=== PATIENT | female | born 1995 | race American Indian/Alaskan Native ===

== ENCOUNTER 2017-05-12 09:47 | Emergency (ER) | payer MEDICAID ==
[2017-05-12 10:26] VITALS: BP 137/70
--- NOTE | 2017-05-12 12:05 | XRay Report ---
ROUTINE CHEST, TWO VIEWS: HISTORY: Cough. The trachea, heart, mediastinal contour, lung palacios and bony thorax are unremarkable. IMPRESSION: Unremarkable chest x-ray.
[2017-05-12] MEDS ORDERED: TESSALON PERLES PO ONE (12:27)
[2017-05-12] MEDS ORDERED: LIDOCAINE VISCOUS 2% PO ONE (12:27)
--- NOTE | 2017-05-12 12:32 | Emergency Department Report ---
- General Chief Complaint: Upper Respiratory Infection Stated Complaint: FLU LIKE SYMPTOMS Time Seen by Provider: 05/12/17 11:11 Source: patient Mode of arrival: Ambulatory Limitations: No Limitations - History of Present Illness Initial Comments: This is a 21-year-old female nontoxic, well nourished in appearance, no acute signs of distress presents to the ED with c/o of sore throat, nasal congestion, productive cough, and rhinorrhea x1 week. Patient describes productive cough as yellow/green mucus production. Patient denies recent travels, long car rides, or recent hospital stays. Patient denies any calf pain, calf tenderness, fever, chills, nausea, vomiting, chest pain, shortness of breath, headache, stiff neck , hemoptysis. Patient denies any allergies. Past medical history includes asthma. MD Complaint: cough, sore throat, rhinorrhea, nasal congestion -: week(s) (1) Severity: mild Severity scale (0 -10): 0 Consistency: constant Improves With: nothing Worsens With: nothing Associated Symptoms: rhinorrhea, nasal congestion, sore throat, cough. denies: fever, chills, myalgias, diaphoresis, headache, stiff neck, chest pain, shortness of breath, abdominal pain, nausea, vomiting, diarrhea, dysuria, rash, confusion, right sweats, weight loss, epistaxis, hoarseness, ear pain Treatments Prior to Arrival: none - Related Data Previous Rx's Medication Instructions Recorded Last Taken Type Amoxicillin/Potassium Clav 1 each PO BID #20 tablet 05/12/17 Unknown Rx [Augmentin 875-125 Tablet] Benzonatate [Tessalon Perle] 100 mg PO Q8H PRN #15 capsule 05/12/17 Unknown Rx Nystas/Diphen/Xyl Visc/Mylanta 480 ml MM Q8H PRN 15 Days udc 05/12/17 Unknown Rx [Magic Mouthwash] Allergies Allergy/AdvReac Type Severity Reaction Status Date / Time No Known Allergies Allergy Verified 05/12/17 10:27 ED Review of Systems ROS: Stated complaint: FLU LIKE SYMPTOMS Other details as noted in HPI Constitutional: denies: chills, fever Eyes: denies: eye pain, eye discharge, vision change ENT: denies: ear pain, throat pain Respiratory: cough. denies: shortness of breath, wheezing Cardiovascular: denies: chest pain, palpitations Endocrine: no symptoms reported Gastrointestinal: denies: abdominal pain, nausea, diarrhea Genitourinary: denies: urgency, dysuria, discharge Musculoskeletal: denies: back pain, joint swelling, arthralgia Skin: denies: rash, lesions Neurological: denies: headache, weakness, paresthesias Psychiatric: denies: anxiety, depression Hematological/Lymphatic: denies: easy bleeding, easy bruising ED Past Medical Hx - Past Medical History Previous Medical History?: Yes Hx Asthma: Yes - Surgical History Past Surgical History?: Yes Additional Surgical History: gallstones - Social History Smoking Status: Never Smoker Substance Use Type: None - Medications Home Medications: Home Medications Medication Instructions Recorded Confirmed Last Taken Type Amoxicillin/Potassium Clav 1 each PO BID #20 tablet 05/12/17 Unknown Rx [Augmentin 875-125 Tablet] Benzonatate [Tessalon Perle] 100 mg PO Q8H PRN #15 capsule 05/12/17 Unknown Rx Nystas/Diphen/Xyl Visc/Mylanta 480 ml MM Q8H PRN 15 Days udc 05/12/17 Unknown Rx [Magic Mouthwash] ED Physical Exam - General Limitations: No Limitations General appearance: alert, in no apparent distress - Head Head exam: Present: atraumatic, normocephalic, normal inspection - Eye Eye exam: Present: normal appearance, PERRL, EOMI. Absent: scleral icterus, conjunctival injection, nystagmus, periorbital swelling, periorbital tenderness Pupils: Present: normal accommodation - ENT ENT exam: Present: mucous membranes moist, TM's normal bilaterally, normal external ear exam - Expanded ENT Exam Expanded Ear exam: Present: normal external inspection Mouth exam: Present: normal external inspection, tongue normal. Absent: drooling, trismus, muffled voice, tongue elevation, laceration Teeth exam: Present: normal inspection Throat exam: Positive: tonsillar erythema, tonsillomegaly (2+), other (Uvula midline. No abscess or swelling ntoed. ). Negative: tonsillar exudate, R peritonsillar mass, L peritonsillar mass - Neck Neck exam: Present: normal inspection, full ROM. Absent: tenderness, meningismus, lymphadenopathy, thyromegaly - Respiratory Respiratory exam: Present: normal lung sounds bilaterally. Absent: respiratory distress, wheezes, rales, rhonchi, stridor, chest wall tenderness, accessory muscle use, decreased breath sounds, prolonged expiratory - Cardiovascular Cardiovascular Exam: Present: regular rate, normal rhythm, normal heart sounds. Absent: bradycardia, tachycardia, irregular rhythm, systolic murmur, diastolic murmur, rubs, gallop - GI/Abdominal GI/Abdominal exam: Present: soft, normal bowel sounds. Absent: distended, tenderness, guarding, rebound, rigid, diminished bowel sounds - Rectal Rectal exam: Present: deferred - Extremities Exam Extremities exam: Present: normal inspection, full ROM, normal capillary refill. Absent: tenderness, pedal edema, joint swelling, calf tenderness - Back Exam Back exam: Present: normal inspection, full ROM. Absent: tenderness, CVA tenderness (R), CVA tenderness (L), muscle spasm, paraspinal tenderness, vertebral tenderness, rash noted - Neurological Exam Neurological exam: Present: alert, oriented X3, CN II-XII intact, normal gait, reflexes normal - Psychiatric Psychiatric exam: Present: normal affect, normal mood - Skin Skin exam: Present: warm, dry, intact, normal color. Absent: rash ED Course Vital Signs 05/12/17 10:24 Temperature 99.3 F Pulse Rate 77 Respiratory 16 Rate Blood Pressure 137/70 O2 Sat by Pulse 100 Oximetry - Reevaluation(s) Reevaluation #1: 05/12/17 12:34 Patient is speaking in full sentences with no signs of distress noted. ED Medical Decision Making - Medical Decision Making This is a 21-year-old female that presents with tonsillitis and upper resp infection. Patient is stable and was examined by me. PAtient received Lidocaine visous and Tessalon Perles the patient stated his symptoms are improving and are subsiding. Chest x-ray obtained and dictated by radiologist but normal exam. Negative influenza swab. Patient is discharged with Augmentin 10 days. Patient was instructed to Follow-up with a primary care doctor in 3-5 days or if symptoms worsen and continue return to emergency room as soon as possible. At time time of discharge, the patient does not seem toxic or ill in appearance. No acute signs of distress noted. Patient agrees to discharge treatment plan of care. No further questions noted by the patient. Critical care attestation.: If time is entered above; I have spent that time in minutes in the direct care of this critically ill patient, excluding procedure time. ED Disposition Clinical Impression: Tonsillitis Upper respiratory infection Qualifiers: URI type: unspecified URI Qualified Code(s): J06.9 - Acute upper respiratory infection, unspecified Disposition: - TO HOME OR SELFCARE Is pt being admited?: No Does the pt Need Aspirin: No Condition: Stable Instructions: Upper Respiratory Infection (ED), Tonsillitis (ED), Amoxicillin/ Clavulanate Potassium (By mouth), Benzonatate (By mouth) Additional Instructions: Follow-up with a primary care doctor in 3-5 days or if symptoms worsen and continue return to emergency room as soon as possible. Prescriptions: Amoxicillin/Potassium Clav [Augmentin 875-125 Tablet] 1 each PO BID #20 tablet Benzonatate [Tessalon Perle] 100 mg PO Q8H PRN #15 capsule PRN Reason: Cough Nystas/Diphen/Xyl Visc/Mylanta [Magic Mouthwash] 480 ml MM Q8H PRN 15 Days udc PRN Reason: Sore Throat Referrals: PRIMARY CAREMD [Primary Care Provider] - 3-5 Days SAUL CORNELIUS MD [Staff Physician] - 3-5 Days [facility] [Outside] - 3-5 Days [facility] [Outside] - 3-5 Days Forms: Work/School Release Form(ED)
== END 2017-05-12 12:46 | disposition home or self-care (01) ==
LOC: ED 09:47
DX: J06.9 Acute upper respiratory infection, unspecified (principal); J03.90 Acute tonsillitis, unspecified; J45.909 Unspecified asthma, uncomplicated
CPT/HCPCS: 71020; 87400; 99284

== ENCOUNTER 2017-12-15 08:49 | Emergency (ER) | payer MEDICAID, OTHER ==
[2017-12-15 09:08] VITALS: BP 128/73
[2017-12-15] MEDS ORDERED: ZOFRAN ODT PO ONE (10:21)
--- NOTE | 2017-12-15 10:42 | Emergency Department Report ---
Blank Doc - Documentation Documentation: This is a 21-year-old Female who is presenting with 2 days of nausea vomiting. Patient states she can't not keep any food down. Patient can drink water with no issue. Patient does not have gallbladder is not sure why these symptoms have occurred. Patient has not had any sick contacts. Patient at the end of the medical screening exam did state that she is late for her. It may be . Patient is given Zofran will undergo a by mouth challenge and reassessment the patient will have a test and urinalysis performed. Brief physical exam patient had no abdominal pain.
[2017-12-15 10:53] LABS: Bilirubin,Urine NEG (Negative); Blood,Urine NEG (Negative); Color,Urine Yellow (Yellow); Mucus,Urine 2+ /HPF; Protein,Urine <15 mg/dL mg/dL (Negative); Urobilinogen,Urine < 2.0 mg/dL (<2.0); WBC,Urine < 1.0 /HPF (0.0-6.0)
[2017-12-15 10:54] LABS: HCG Qualitative,Urine Positive (Negative)
--- NOTE | 2017-12-15 11:09 | Emergency Department Report ---
ED N/V/D HPI - General Chief complaint: Nausea/Vomiting/Diarrhea Stated complaint: NAUSEA/VOMITTING Time Seen by Provider: 12/15/17 10:17 Source: patient Mode of arrival: Ambulatory Limitations: No Limitations - History of Present Illness Initial comments: This is a 21-year-old Female who is presenting with 2 days of nausea vomiting. Patient states she can't not keep any food down. Patient can drink water with no issue. Patient does not have gallbladder is not sure why these symptoms have occurred. Patient has not had any sick contacts. Patient at the end of the medical screening exam did state that she is late for her. It may be . MD complaint: nausea, vomiting Associated Abdominal Pain: No Quality: cramping Consistency: constant Associated Symptoms: denies: myalgias, chest pain, cough, diaphoresis, fever/ chills, headaches, loss of appetite, malaise, rash, dysuria, shortness of breath , syncope - Related Data Previous Rx's Medication Instructions Recorded Last Taken Type Amoxicillin/Potassium Clav 1 each PO BID #20 tablet 05/12/17 Unknown Rx [Augmentin 875-125 Tablet] Benzonatate [Tessalon Perle] 100 mg PO Q8H PRN #15 capsule 05/12/17 Unknown Rx Nystas/Diphen/Xyl Visc/Mylanta 480 ml MM Q8H PRN 15 Days udc 05/12/17 Unknown Rx [Magic Mouthwash] Ondansetron [Zofran Odt] 4 mg PO Q8HR PRN #10 tab.rapdis 12/15/17 Unknown Rx Prenat 115/Iron Fum/Folic/Dss 1 each PO DAILY #30 tablet 12/15/17 Unknown Rx [Pnv-Ferrous Zxjtvoos-Xfin-HK] Allergies Allergy/AdvReac Type Severity Reaction Status Date / Time No Known Allergies Allergy Verified 05/12/17 10:27 ED Review of Systems ROS: Stated complaint: NAUSEA/VOMITTING Other details as noted in HPI Comment: All other systems reviewed and negative ED Past Medical Hx - Past Medical History Hx Asthma: Yes - Surgical History Additional Surgical History: gallstones - Social History Smoking Status: Current Every Day Smoker Substance Use Type: None - Medications Home Medications: Home Medications Medication Instructions Recorded Confirmed Last Taken Type Amoxicillin/Potassium Clav 1 each PO BID #20 tablet 05/12/17 Unknown Rx [Augmentin 875-125 Tablet] Benzonatate [Tessalon Perle] 100 mg PO Q8H PRN #15 capsule 05/12/17 Unknown Rx Nystas/Diphen/Xyl Visc/Mylanta 480 ml MM Q8H PRN 15 Days udc 05/12/17 Unknown Rx [Magic Mouthwash] Ondansetron [Zofran Odt] 4 mg PO Q8HR PRN #10 tab.rapdis 12/15/17 Unknown Rx Prenat 115/Iron Fum/Folic/Dss 1 each PO DAILY #30 tablet 12/15/17 Unknown Rx [Pnv-Ferrous Qhnmntxo-Ycsh-SG] ED Physical Exam - General Limitations: No Limitations General appearance: alert, in no apparent distress - Head Head exam: Present: atraumatic, normocephalic - Eye Eye exam: Present: normal appearance - ENT ENT exam: Present: mucous membranes moist - Neck Neck exam: Present: normal inspection - Respiratory Respiratory exam: Present: normal lung sounds bilaterally. Absent: respiratory distress - Cardiovascular Cardiovascular Exam: Present: regular rate, normal rhythm. Absent: systolic murmur, diastolic murmur, rubs, gallop - GI/Abdominal GI/Abdominal exam: Present: soft, normal bowel sounds - Extremities Exam Extremities exam: Present: normal inspection - Back Exam Back exam: Present: normal inspection - Neurological Exam Neurological exam: Present: alert, oriented X3 - Psychiatric Psychiatric exam: Present: normal affect, normal mood - Skin Skin exam: Present: warm, dry, intact, normal color. Absent: rash ED Course Vital Signs 12/15/17 12/15/17 09:05 09:55 Temperature 98.2 F Pulse Rate 87 Respiratory 18 18 Rate Blood Pressure 128/73 O2 Sat by Pulse 98 99 Oximetry ED Medical Decision Making - Lab Data Lab Results 12/15/17 Range/Units 10:28 Urine Color Yellow (Yellow) Urine Turbidity Clear (Clear) Urine pH 6.0 (5.0-7.0) Ur Specific [place] 1.026 (1.003-1.030) Urine Protein <15 mg/dl (Negative) mg/dL Urine Glucose (UA) Neg (Negative) mg/dL Urine Ketones Tr (Negative) mg/dL Urine Blood Neg (Negative) Urine Nitrite Neg (Negative) Urine Bilirubin Neg (Negative) Urine Urobilinogen < 2.0 (<2.0) mg/dL Ur Leukocyte Esterase Neg (Negative) Urine WBC (Auto) < 1.0 (0.0-6.0) /HPF Urine RBC (Auto) 1.0 (0.0-6.0) /HPF U Epithel Cells (Auto) 8.0 (0-13.0) /HPF Urine Mucus 2+ /HPF Urine HCG, Qual Positive A (Negative) - Medical Decision Making Patient will be referred to gynecology for further management of this . Patient has no abdominal pain or bleeding at this time does not warrant ultrasound. Patient restarted on Ms. for nausea and vitamins. Critical care attestation.: If time is entered above; I have spent that time in minutes in the direct care of this critically ill patient, excluding procedure time. ED Disposition Clinical Impression: Qualifiers: Weeks of gestation: unspecified Qualified Code(s): Z34.90 - Encounter for supervision of normal , unspecified, unspecified trimester Disposition: DC-01 TO HOME OR SELFCARE Is pt being admited?: No Does the pt Need Aspirin: No Condition: Stable Instructions: (ED), Acute Nausea and Vomiting (ED) Prescriptions: Ondansetron [Zofran Odt] 4 mg PO Q8HR PRN #10 tab.rapdis PRN Reason: Nausea Prenat 115/Iron Fum/Folic/Dss [Pnv-Ferrous Abeuueio-Mjbo-SA] 1 each PO DAILY # 30 tablet Referrals: TATI MESSINA MD [Staff Physician] - 3-5 Days
== END 2017-12-15 11:16 | disposition home or self-care (01) ==
LOC: ED 08:49
DX: Z34.90 Encounter for supervision of normal pregnancy, unspecified, unspecified trimester (principal); J45.909 Unspecified asthma, uncomplicated; F17.200 Nicotine dependence, unspecified, uncomplicated; Z3A.00 Weeks of gestation of pregnancy not specified
CPT/HCPCS: 81001; 81025; 99283; Q0162

== ENCOUNTER 2017-12-22 10:21 | Emergency (ER) | payer SELFPAY ==
[2017-12-22] MEDS ORDERED: ZOFRAN IV ONE (11:46)
--- NOTE | 2017-12-22 11:50 | Emergency Department Report ---
Blank Doc - Documentation Documentation: 22 year female with past surgical history of cholecystectomy presents to hospital stating she is approximately 7 weeks with nausea vomiting with by mouth intolerance for past 24 hours. Patient was seen here December 15 with similar symptoms and diagnosed with at that time. The prescribe Zofran is not controlling her nausea vomiting symptoms. Patient feels lightheaded and has a headache and feels like she is dehydrated. She complains of mild epigastric pain. She denies vaginal discharge or bleeding. She has her first [employer] appointment scheduled in 3 days with a [facility] group on [facility] in [place] but she cannot recall the name of the group. Previous visit reviewed. Exam on epigastric pain Labs, UA, ultrasound Meds: D5 NS and Zofran Midlevel to follow
[2017-12-22 12:00] LABS: Hematocrit 37.9 % (30.3-42.9); Hemoglobin 13.2 gm/dl (10.1-14.3); Mean Corpuscular HGB Conc 35 % (30-34); Mean Corpuscular Hemoglobin 29 pg (28-32); Mean Corpuscular Volume 84 fl (79-97); Platelet Count 227 K/mm3 (140-440); Red Blood Count 4.53 M/mm3 (3.65-5.03); Red Cell Distribution Width 12.6 % (13.2-15.2)
[2017-12-22] MEDS ORDERED: D5NS 1,000 ML IV SCH (12:00)
[2017-12-22 12:23] LABS: Alanine Aminotransferase 28 units/L (7-56); Albumin 4.5 g/dL (3.9-5); BUN/Creatinine Ratio 9; Blood Urea Nitrogen 6 mg/dL (7-17); Calcium 9.6 mg/dL (8.4-10.2); Hemolysis Index 10
--- NOTE | 2017-12-22 12:35 | Emergency Department Report ---
Vomiting/Diarrhea - HPI Chief Complaint: Nausea/Vomiting/Diarrhea Stated Complaint: CONSTANT VOMITING/ DIZZINESS/ Time Seen by Provider: 12/22/17 11:42 Duration: 2 Days Severity: moderate Nausea/Vomiting Severity: Moderate Diarrhea Severity: None Pain Severity: None Symptoms: Yes Able to Tolerate Fluids, No Watery Diarrhea, No Bloody diarrhea, No Fever, No Recent Unusual Foods, No Recent Untreated Water, No Recent use of Antibiotics, No Family w/ Similar Symptoms, No Contacts w/ Similar Symptoms, No Rash, No Hematuria, No Recent URI Symptoms Other History: This is a 22 year female who presents with nausea and vomiting and headache for 24 hours. Patient is approximately 7 weeks gestation. She has her first appointment with [facility] TECHNICIAN in [place] near her house next week. She does not remember the name of the OPERATING ROOM TECHNICIAN. Past surgical history of cholecystectomy. Patient was seen here December 15 with similar symptoms and diagnosed with at that time. She was prescribed Zofran which is not controlling nausea and vomiting. Patient feels lightheaded and has a headache and feels like she is dehydrated. She complains of mild epigastric pain. She denies vaginal discharge or bleeding, chest pain, abdominal and low back pain, and fever. ED Review of Systems ROS: Stated complaint: CONSTANT VOMITING/ DIZZINESS/ Other details as noted in HPI Constitutional: denies: chills, fever Respiratory: denies: cough, shortness of breath, wheezing Cardiovascular: denies: chest pain, palpitations Gastrointestinal: nausea, vomiting. denies: abdominal pain, diarrhea, constipation, hematemesis, melena, hematochezia Genitourinary: denies: urgency, dysuria, discharge Neurological: headache. denies: weakness, numbness, paresthesias Psychiatric: denies: anxiety, depression ED Past Medical Hx - Past Medical History Hx Asthma: Yes - Surgical History Past Surgical History?: Yes Additional Surgical History: gallstones - Social History Smoking Status: Never Smoker Substance Use Type: Marijuana - Medications Home Medications: Home Medications Medication Instructions Recorded Confirmed Last Taken Type Amoxicillin/Potassium Clav 1 each PO BID #20 tablet 05/12/17 Unknown Rx [Augmentin 875-125 Tablet] Benzonatate [Tessalon Perle] 100 mg PO Q8H PRN #15 capsule 05/12/17 Unknown Rx Nystas/Diphen/Xyl Visc/Mylanta 480 ml MM Q8H PRN 15 Days udc 05/12/17 Unknown Rx [Magic Mouthwash] Ondansetron [Zofran Odt] 4 mg PO Q8HR PRN #10 tab.rapdis 12/15/17 Unknown Rx Prenat 115/Iron Fum/Folic/Dss 1 each PO DAILY #30 tablet 12/15/17 Unknown Rx [Pnv-Ferrous Uueluned-Rziv-SY] Ondansetron [Zofran Odt] 4 mg PO TID PRN #15 tab.rapdis 12/22/17 Unknown Rx Vomiting Diarrhea Exam - Exam General: Vital signs noted. No distress. Alert and acting appropriately. HEENT: Yes Moist Mucous Membranes, No Pharyngeal Erythema, No Pharyngeal Exudates, No Rhinorrhea, No Conjuctival Injection, No Frontal Tenderness, No Maxillary Tenderness Neck: No Adenopathy, No Rigidity Lungs: Yes Clear Lung Sounds, Yes Good Air Exchange, No Wheezes, No Stridor, No Cough, No Nasal Flaring, No Retractions, No Use of Accessory Muscles Heart exam: Regular: Yes, Murmur: No, Tachycardia: No Abdomen: Tenderness: No, Peritoneal Signs: No, Distention: No, Hyperactive Bowel sounds: No Skin exam: Rash: No, Edema: No, Normal turgor: Yes Neurologic: Alert and oriented, no deficits. Musculoskeletal: Unremarkable. ED Course Vital Signs 12/22/17 10:33 Temperature 98.8 F Pulse Rate 81 Respiratory 16 Rate Blood Pressure 122/80 O2 Sat by Pulse 100 Oximetry ED Medical Decision Making - Lab Data Result diagrams: 12/22/17 11:50 12/22/17 11:49 - Radiology Data Radiology results: report reviewed Pelvic and transvaginal sonography: History: Vomiting, . Findings: Uterus measures 10 x 5.6 x 6.5 cm. Single intrauterine gestational sac is noted. The sac diameter is 15 mm corresponding to 6 weeks and 2 days of gestation. Yolk sac is identified however no pole is seen. Right ovary 2 x 1.4 x 1.5 cm. No mass. Left ovary 2.5 x 1.8 x 2.2 cm. No mass. Impression: Single intrauterine gestational sac with yolk sac is identified. - Medical Decision Making This is a 22 y.o. female presents with nausea and vomiting and headache for 24 hours. Patient is approximately 7 weeks gestation. Patient was examined by me and Dr. Elaine. Obtained BMP, CMP, hCG Quant, and OB [place]. [place] [address], all the labs unremarkable. Single intrauterine gestational sac with yolk sac is identified. Patient informed of results and given ultrasound report to take to [facility]ATING RO[facility] TECHNICIAN. Continue Zofran for nausea and follow-up with OPERATING ROOM TECHNICIAN next week. Plan discussed with patient to discharge home and treat outpatient. Patient discharged home in stable condition. Follow up with PCP and OPERATING ROOM TECHNICIAN in 2-3 days. Critical care attestation.: If time is entered above; I have spent that time in minutes in the direct care of this critically ill patient, excluding procedure time. ED Disposition Clinical Impression: Nausea and vomiting during Qualifiers: Weeks of gestation: less than 8 weeks Qualified Code(s): Z3A.01 - Less than 8 weeks gestation of Disposition: TO HOME OR SELFCARE Is pt being admited?: No Does the pt Need Aspirin: No Condition: Stable Instructions: Morning Sickness (ED), Acute Nausea and Vomiting (ED) Additional Instructions: Take Zofran 3 times a day as needed for nausea. Follow-up with OPERATING ROOM TECHNICIAN in 3-5 days. With time to ER is nausea and vomiting increase, abdominal pain, vaginal bleeding, and fever. Prescriptions: Ondansetron [Zofran Odt] 4 mg PO TID PRN #15 tab.rapdis PRN Reason: Nausea And Vomiting Referrals: [facility] [Provider Group] - 3-5 Days [facility] [Provider Group] - 3-5 Days Forms: Work/School Release Form(ED) Time of Disposition: 14:19 Print Language: TURKMEN
--- NOTE | 2017-12-22 13:43 | Ultrasound Report ---
Pelvic and transvaginal sonography: History: Vomiting, . Findings: Uterus measures 10 x 5.6 x 6.5 cm. Single intrauterine gestational sac is noted. The sac diameter is 15 mm corresponding to 6 weeks and 2 days of gestation. Yolk sac is identified however no pole is seen. Right ovary 2 x 1.4 x 1.5 cm. No mass. Left ovary 2.5 x 1.8 x 2.2 cm. No mass. Impression: Single intrauterine gestational sac with yolk sac is identified.
[2017-12-22 14:30] VITALS: BP 128/80
== END 2017-12-22 14:30 | disposition home or self-care (01) ==
LOC: ED 10:21
DX: O21.9 Vomiting of pregnancy, unspecified (principal); O26.891 Other specified pregnancy related conditions, first trimester; R51 Headache; R42 Dizziness and giddiness; R10.13 Epigastric pain; J45.909 Unspecified asthma, uncomplicated; F12.10 Cannabis abuse, uncomplicated; Z3A.01 Less than 8 weeks gestation of pregnancy; Z90.49 Acquired absence of other specified parts of digestive tract
CPT/HCPCS: 36415; 76801; 76817; 80053; 82962; 84702; 85027; 96361; 96374; 99284; J2405; J7042

== ENCOUNTER 2017-12-25 00:48 | Emergency (ER) | payer SELFPAY ==
[2017-12-25 01:52] VITALS: BP 121/71
[2017-12-25 02:53] LABS: Basophils % (Auto) 0.4 % (0.0-1.8); Eosinophils # (Auto) 0.1 K/mm3 (0.0-0.4); Eosinophils % (Auto) 1.1 % (0.0-4.3); Hematocrit 39.9 % (30.3-42.9); Hemoglobin 13.4 gm/dl (10.1-14.3); Lymphocytes # (Auto) 1.9 K/mm3 (1.2-5.4); Lymphocytes % (Auto) 16.6 % (13.4-35.0); Mean Corpuscular HGB Conc 34 % (30-34); Mean Corpuscular Hemoglobin 28 pg (28-32); Mean Corpuscular Volume 84 fl (79-97); Monocytes # (Auto) 0.7 K/mm3 (0.0-0.8); Monocytes % (Auto) 6.1 % (0.0-7.3); Platelet Count 232 K/mm3 (140-440); Red Blood Count 4.74 M/mm3 (3.65-5.03); Red Cell Distribution Width 12.7 % (13.2-15.2)
[2017-12-25 03:07] LABS: Alanine Aminotransferase 23 units/L (7-56); Albumin 4.7 g/dL (3.9-5); BUN/Creatinine Ratio 10; Blood Urea Nitrogen 7 mg/dL (7-17); Calcium 9.8 mg/dL (8.4-10.2); Hemolysis Index 0
[2017-12-25 03:20] LABS: HCG Qualitative,Urine Positive (Negative)
[2017-12-25 03:24] LABS: Bacteria,Urine 2+ /HPF (Negative); Bilirubin,Urine NEG (Negative); Blood,Urine NEG (Negative); Color,Urine Yellow (Yellow); Mucus,Urine 3+ /HPF; Urobilinogen,Urine < 2.0 mg/dL (<2.0)
[2017-12-25] MEDS ORDERED: ZOFRAN ONE (03:40)
[2017-12-25] MEDS ORDERED: ZOFRAN IV ONE (04:07)
== END 2017-12-25 05:00 | disposition left against medical advice (07) ==
LOC: ED 00:48
DX: R11.2 Nausea with vomiting, unspecified (principal); Z53.21 Procedure and treatment not carried out due to patient leaving prior to being seen by health care provider
CPT/HCPCS: 36415; 80053; 81001; 81025; 84703; 85025; 93005; 93010; J2405